=== PATIENT | female | born 1990 | race American Indian/Alaskan Native ===

== ENCOUNTER 2018-05-20 13:33 | Emergency (ER) | payer BC ==
--- NOTE | 2018-05-20 13:56 | Emergency Department Report ---
Chief Complaint: Extremity Problem,Nontraumatic Stated Complaint: CHEST PAIN/LFT LEG TINGLE Time Seen by Provider: 05/20/18 13:56 - HPI History of Present Illness: cp and tightness in chest started as just l side n/t for months no pcp seen vss nad mse completed - Exam Vital Signs: Vital Signs 05/20/18 13:55 Temperature 98 F Pulse Rate 83 Respiratory 20 Rate Blood Pressure 145/82 O2 Sat by Pulse 100 Oximetry MSE screening note: Focused history and physical exam performed. Due to findings the following was ordered: ED Disposition for MSE Condition: Stable
[2018-05-20 14:37] LABS: Hemoglobin 11.4 gm/dl (10.1-14.3); Mean Corpuscular HGB Conc 33 % (30-34); Mean Corpuscular Volume 88 fl (79-97); Platelet Count 323 K/mm3 (140-440); Red Blood Count 3.84 M/mm3 (3.65-5.03); Red Cell Distribution Width 14.4 % (13.2-15.2)
[2018-05-20 14:45] LABS: BUN/Creatinine Ratio 17; Blood Urea Nitrogen 12 mg/dL (7-17); Calcium 9.1 mg/dL (8.4-10.2); Hemolysis Index 10
--- NOTE | 2018-05-20 17:43 | Emergency Department Report ---
ED Lower Extremity HPI - General Chief Complaint: Extremity Problem,Nontraumatic Stated Complaint: CHEST PAIN/LFT LEG TINGLE Time Seen by Provider: 05/20/18 13:56 Source: patient Mode of arrival: Ambulatory Limitations: No Limitations - History of Present Illness Initial Comments: This is an 27-year-old female tingling in left pinky toe and chest discomfort 2- 3 weeks. Past medical history of asthma. Patient states she seen by primary care provider it equals landing and told to follow-up this week. She experienced increased numbness and tingling to left lower extremity and decided to come here for further evaluation. A shunt states asthma control for several years. Her last inhaler use 2 years ago. She denies cough, shortness of breath, palpitations, chest pain, nausea or vomiting, or weakness. MD Complaint: leg injury (left) Onset/Timin -: week(s) Injury: Leg: Left Type of Injury: unknown Place: home Severity: mild Severity scale (0 -10): 0 Improves With: NSAID Worsens With: nothing Associated Symptoms: numbness, tingling, ambulatory Treatments Prior to Arrival: NSAIDS - Related Data Allergies Allergy/AdvReac Type Severity Reaction Status Date / Time No Known Allergies Allergy Unverified 05/20/18 13:37 ED Review of Systems ROS: Stated complaint: CHEST PAIN/LFT LEG TINGLE Other details as noted in HPI Constitutional: denies: chills, fever Respiratory: denies: cough, shortness of breath, wheezing Cardiovascular: denies: chest pain (chest discomfort), palpitations Gastrointestinal: denies: abdominal pain, nausea, diarrhea Musculoskeletal: arthralgia (left lower extremity). denies: back pain, joint swelling Skin: denies: rash, lesions Neurological: denies: headache, weakness, paresthesias Psychiatric: denies: anxiety, depression ED Past Medical Hx - Past Medical History Previous Medical History?: Yes Hx Asthma: Yes - Surgical History Past Surgical History?: No - Social History Smoking Status: Never Smoker Substance Use Type: None ED Physical Exam - General Limitations: No Limitations General appearance: alert, in no apparent distress, obese (morbidly obese) - ENT ENT exam: Present: mucous membranes moist - Respiratory Respiratory exam: Present: normal lung sounds bilaterally. Absent: respiratory distress, wheezes, rales, rhonchi, stridor, chest wall tenderness, accessory muscle use - Cardiovascular Cardiovascular Exam: Present: regular rate, normal rhythm. Absent: systolic murmur, diastolic murmur, rubs, gallop - GI/Abdominal GI/Abdominal exam: Present: soft, normal bowel sounds. Absent: distended, tenderness, guarding, rebound, rigid, organomegaly, mass - Expanded Lower Extremity Exam Left Hip exam: Present: normal inspection, full ROM Upper Leg exam: Present: normal inspection, full ROM Knee exam: Present: normal inspection, full ROM Lower Leg exam: Present: normal inspection, full ROM Ankle exam: Present: normal inspection, full ROM Foot/Toe exam: Present: normal inspection, full ROM Neuro vascular tendon exam: Present: no vascular compromise Gait: Positive: observed and normal - Neurological Exam Neurological exam: Present: alert, oriented X3, normal gait - Psychiatric Psychiatric exam: Present: normal affect, normal mood - Skin Skin exam: Present: warm, dry, intact, normal color. Absent: rash ED Course Vital Signs 05/20/18 13:55 Temperature 98 F Pulse Rate 83 Respiratory 20 Rate Blood Pressure 145/82 O2 Sat by Pulse 100 Oximetry ED Lower Extremity MDM - Lab Data Result diagrams: 05/20/18 14:00 05/20/18 14:00 Lab Results 05/20/18 05/20/18 05/20/18 Range/Units 14:00 14:00 14:00 WBC 8.1 (4.5-11.0) K/mm3 RBC 3.84 (3.65-5.03) M/mm3 Hgb 11.4 (10.1-14.3) gm/dl Hct 34.0 (30.3-42.9) % MCV 88 (79-97) fl MCH 30 (28-32) pg MCHC 33 (30-34) % RDW 14.4 (13.2-15.2) % Plt Count 323 (140-440) K/mm3 D-Dimer < 135.00 (0-234) ng/mlDDU Sodium 137 (137-145) mmol/L Potassium 4.0 (3.6-5.0) mmol/L Chloride 100.6 (98-107) mmol/L Carbon Dioxide 25 (22-30) mmol/L Anion Gap 15 mmol/L BUN 12 (7-17) mg/dL Creatinine 0.7 (0.7-1.2) mg/dL Estimated GFR > 60 ml/min BUN/Creatinine Ratio 17 % Glucose 89 (65-100) mg/dL Calcium 9.1 (8.4-10.2) mg/dL - Medical Decision Making 27 y.o. female that presents with chest chest discomfort and tingling to left lower extremity for 2-3 weeks. Past medical history of controlled asthma. Denies shortness of breath, chest pain, palpitations, or drug use. Patient examined by me and in no acute distress. Vitals stable. Obtained labs. All labs are unremarkable. On focal exam there was no reproducible pain. PCP is with [facility] [place]. Patient was sleeping marrow couple weeks back and told to follow-up but unable. Patient is directed to follow-up with [facility] for further evaluation and workup. Discharged home stable. Return to work tomorrow. Critical care attestation.: If time is entered above; I have spent that time in minutes in the direct care of this critically ill patient, excluding procedure time. ED Disposition Clinical Impression: Numbness and tingling of foot, Chest wall discomfort Disposition: DC-01 TO HOME OR SELFCARE Is pt being admited?: No Does the pt Need Aspirin: No Condition: Stable Instructions: Paresthesia (ED) Additional Instructions: Follow-up with her primary care provider for further evaluation. Referrals: [facility] [Provider Group] - 3-5 Days [facility] [Provider Group] - 3-5 Days Forms: Work/School Release Form(ED) Time of Disposition: 17:45
[2018-05-20 18:08] VITALS: BP 142/80
== END 2018-05-20 18:06 | disposition home or self-care (01) ==
LOC: ED 13:33
DX: R07.89 Other chest pain (principal); R20.0 Anesthesia of skin; R20.2 Paresthesia of skin; J45.909 Unspecified asthma, uncomplicated
CPT/HCPCS: 36415; 80048; 85027; 85379; 99283

== ENCOUNTER 2018-08-19 03:55 | Emergency (ER) | payer BC ==
[2018-08-19 04:03] VITALS: BP 137/83
[2018-08-19 04:25] LABS: Basophils % (Auto) 0.4 % (0.0-1.8); Eosinophils # (Auto) 0.1 K/mm3 (0.0-0.4); Eosinophils % (Auto) 1.1 % (0.0-4.3); Hemoglobin 11.8 gm/dl (10.1-14.3); Lymphocytes # (Auto) 3.5 K/mm3 (1.2-5.4); Lymphocytes % (Auto) 30.1 % (13.4-35.0); Mean Corpuscular HGB Conc 34 % (30-34); Mean Corpuscular Volume 89 fl (79-97); Monocytes # (Auto) 0.8 K/mm3 (0.0-0.8); Monocytes % (Auto) 6.7 % (0.0-7.3); Platelet Count 320 K/mm3 (140-440); Red Blood Count 3.92 M/mm3 (3.65-5.03); Red Cell Distribution Width 15.5 % (13.2-15.2)
[2018-08-19 04:25] LABS: Bacteria,Urine 1+ /HPF (Negative); Bilirubin,Urine NEG (Negative); Blood,Urine MOD (Negative); Color,Urine Yellow (Yellow); Hyaline Casts,Urine 2 /LPF; Mucus,Urine 2+ /HPF; Protein,Urine <15 mg/dL mg/dL (Negative); Urobilinogen,Urine < 2.0 mg/dL (<2.0)
[2018-08-19 04:40] LABS: Alanine Aminotransferase 9 units/L (7-56); Albumin 4.1 g/dL (3.9-5); BUN/Creatinine Ratio 19; Blood Urea Nitrogen 17 mg/dL (7-17); Calcium 9.2 mg/dL (8.4-10.2); Hemolysis Index 3
[2018-08-19] MEDS ORDERED: ROCEPHIN/NS 1 GM/50 ML 1 GM/50 ML BAG IV ONE (07:41)
[2018-08-19] MEDS ORDERED: NACL 0.9% 1000 ML 1,000 ML IV ONE (07:41)
[2018-08-19] MEDS ORDERED: ZOFRAN ODT PO ONE (07:41)
--- NOTE | 2018-08-19 07:41 | Emergency Department Report ---
ED Dysuria HPI - HPI Chief Complaint: Abdominal Pain Stated Complaint: EMESIS/DIARRHEA/HEADACHE Time Seen by Provider: 08/19/18 07:11 Duration: 3 Days Severity: Mild Symptoms: Dysuria: Yes, Frequency: No, Suprapubic Pain: No, Flank Pain: No, Fever: No, Hematuria: No, Abdominal Pain: No, Previous UTI's: Yes Other History: Patient is a 27-year-old female presents to the ER today complaining of dysuria. She is having some suprapubic discomfort. She denies any fever or chills or back pain. Patient has no nausea and vomiting. Her pain is not consistent with kidney stone. Patient is nontoxic on exam. She has not taken anything at home to make her pain better. Nothing seems to make it worse. ED Review of Systems ROS: Stated complaint: EMESIS/DIARRHEA/HEADACHE Other details as noted in HPI Comment: All other systems reviewed and negative ED Past Medical Hx - Past Medical History Previous Medical History?: Yes Hx Asthma: Yes - Surgical History Past Surgical History?: No - Family History Family history: no significant - Social History Smoking Status: Never Smoker Substance Use Type: Alcohol - Medications Home Medications: Home Medications Medication Instructions Recorded Confirmed Last Taken Type Clindamycin [Clindamycin CAP] 300 mg PO Q8H #30 cap 08/19/18 Unknown Rx Fluconazole [Diflucan TAB] 150 mg PO ONCE #1 tablet 08/19/18 Unknown Rx Ondansetron [Zofran Odt] 4 mg PO Q8HR PRN #10 tab.rapdis 08/19/18 Unknown Rx Dysuria Exam - Exam General: Vital signs noted. No distress. Alert and acting appropriately. Labs: Lab Results 08/19/18 08/19/18 08/19/18 Range/Units 04:08 04:11 04:11 WBC 11.7 H (4.5-11.0) K/mm3 RBC 3.92 (3.65-5.03) M/mm3 Hgb 11.8 (10.1-14.3) gm/dl Hct 35.0 (30.3-42.9) % MCV 89 (79-97) fl MCH 30 (28-32) pg MCHC 34 (30-34) % RDW 15.5 H (13.2-15.2) % Plt Count 320 (140-440) K/mm3 Lymph % (Auto) 30.1 (13.4-35.0) % [place]ill % (Auto) 6.7 (0.0-7.3) % Eos % (Auto) 1.1 (0.0-4.3) % Baso % (Auto) 0.4 (0.0-1.8) % Lymph # 3.5 (1.2-5.4) K/mm3 Estill # 0.8 (0.0-0.8) K/mm3 Eos # 0.1 (0.0-0.4) K/mm3 Baso # 0.0 (0.0-0.1) K/mm3 Seg Neutrophils % 61.7 (40.0-70.0) % Seg Neutrophils # 7.2 (1.8-7.7) K/mm3 Sodium 139 (137-145) mmol/L Potassium 3.9 (3.6-5.0) mmol/L Chloride 101.9 (98-107) mmol/L Carbon Dioxide 25 (22-30) mmol/L Anion Gap 16 mmol/L BUN 17 (7-17) mg/dL Creatinine 0.9 (0.7-1.2) mg/dL Estimated GFR > 60 ml/min BUN/Creatinine Ratio 19 % Glucose 101 H (65-100) mg/dL Calcium 9.2 (8.4-10.2) mg/dL Total Bilirubin 0.40 (0.1-1.2) mg/dL AST 16 (5-40) units/L ALT 9 (7-56) units/L Alkaline Phosphatase 105 (35-129) units/L Total Protein 8.3 H (6.3-8.2) g/dL Albumin 4.1 (3.9-5) g/dL Albumin/Globulin Ratio 1.0 % Lipase 24 (13-60) units/L HCG, Qual (Negative) Urine Color Yellow (Yellow) Urine Turbidity Cloudy (Clear) Urine pH 5.0 (5.0-7.0) Ur Specific [place] 1.033 H (1.003-1.030) Urine Protein <15 mg/dl (Negative) mg/dL Urine Glucose (UA) Neg (Negative) mg/dL Urine Ketones Neg (Negative) mg/dL Urine Blood Mod (Negative) Urine Nitrite Neg (Negative) Urine Bilirubin Neg (Negative) Urine Urobilinogen < 2.0 (<2.0) mg/dL Ur Leukocyte Esterase Mod (Negative) Urine WBC (Auto) 45.0 H (0.0-6.0) /HPF Urine RBC (Auto) 23.0 (0.0-6.0) /HPF U Epithel Cells (Auto) 22.0 H (0-13.0) /HPF Urine Bacteria (Auto) 1+ (Negative) /HPF Hyaline Casts 2 /LPF Urine Mucus 2+ /HPF Urine Yeast (Budding) 1+ /HPF 08/19/18 Range/Units 04:11 WBC (4.5-11.0) K/mm3 RBC (3.65-5.03) M/mm3 Hgb (10.1-14.3) gm/dl Hct (30.3-42.9) % MCV (79-97) fl MCH (28-32) pg MCHC (30-34) % RDW (13.2-15.2) % Plt Count (140-440) K/mm3 Lymph % (Auto) (13.4-35.0) % [place]ill % (Auto) (0.0-7.3) % Eos % (Auto) (0.0-4.3) % Baso % (Auto) (0.0-1.8) % Lymph # (1.2-5.4) K/mm3 Estill # (0.0-0.8) K/mm3 Eos # (0.0-0.4) K/mm3 Baso # (0.0-0.1) K/mm3 Seg Neutrophils % (40.0-70.0) % Seg Neutrophils # (1.8-7.7) K/mm3 Sodium (137-145) mmol/L Potassium (3.6-5.0) mmol/L Chloride (98-107) mmol/L Carbon Dioxide (22-30) mmol/L Anion Gap mmol/L BUN (7-17) mg/dL Creatinine (0.7-1.2) mg/dL Estimated GFR ml/min BUN/Creatinine Ratio % Glucose (65-100) mg/dL Calcium (8.4-10.2) mg/dL Total Bilirubin (0.1-1.2) mg/dL AST (5-40) units/L ALT (7-56) units/L Alkaline Phosphatase (35-129) units/L Total Protein (6.3-8.2) g/dL Albumin (3.9-5) g/dL Albumin/Globulin Ratio % Lipase (13-60) units/L HCG, Qual Negative (Negative) Urine Color (Yellow) Urine Turbidity (Clear) Urine pH (5.0-7.0) Ur Specific [place] (1.003-1.030) Urine Protein (Negative) mg/dL Urine Glucose (UA) (Negative) mg/dL Urine Ketones (Negative) mg/dL Urine Blood (Negative) Urine Nitrite (Negative) Urine Bilirubin (Negative) Urine Urobilinogen (<2.0) mg/dL Ur Leukocyte Esterase (Negative) Urine WBC (Auto) (0.0-6.0) /HPF Urine RBC (Auto) (0.0-6.0) /HPF U Epithel Cells (Auto) (0-13.0) /HPF Urine Bacteria (Auto) (Negative) /HPF Hyaline Casts /LPF Urine Mucus /HPF Urine Yeast (Budding) /HPF WDWN patient in NAD VS per RN flow sheet Alert and oriented to person, place and time. S1-S2. No S3 or S4. No systolic or diastolic murmur. No JVD. No pitting edema. Lungs clear to auscultation bilaterally anteriorly and posteriorly. Abdomen soft nontender bowel sounds X4 Moves all extremities well. Mood and affect appropriate. ED Course Vital Signs 08/19/18 03:59 Temperature 98.0 F Pulse Rate 75 Respiratory 18 Rate Blood Pressure 137/83 O2 Sat by Pulse 100 Oximetry ED Medical Decision Making - Lab Data Result diagrams: 08/19/18 04:11 08/19/18 04:11 - Medical Decision Making Lab Results 08/19/18 08/19/18 08/19/18 Range/Units 04:08 04:11 04:11 WBC 11.7 H (4.5-11.0) K/mm3 RBC 3.92 (3.65-5.03) M/mm3 Hgb 11.8 (10.1-14.3) gm/dl Hct 35.0 (30.3-42.9) % MCV 89 (79-97) fl MCH 30 (28-32) pg MCHC 34 (30-34) % RDW 15.5 H (13.2-15.2) % Plt Count 320 (140-440) K/mm3 Lymph % (Auto) 30.1 (13.4-35.0) % Estill % (Auto) 6.7 (0.0-7.3) % Eos % (Auto) 1.1 (0.0-4.3) % Baso % (Auto) 0.4 (0.0-1.8) % Lymph # 3.5 (1.2-5.4) K/mm3 Estill # 0.8 (0.0-0.8) K/mm3 Eos # 0.1 (0.0-0.4) K/mm3 Baso # 0.0 (0.0-0.1) K/mm3 Seg Neutrophils % 61.7 (40.0-70.0) % Seg Neutrophils # 7.2 (1.8-7.7) K/mm3 Sodium 139 (137-145) mmol/L Potassium 3.9 (3.6-5.0) mmol/L Chloride 101.9 (98-107) mmol/L Carbon Dioxide 25 (22-30) mmol/L Anion Gap 16 mmol/L BUN 17 (7-17) mg/dL Creatinine 0.9 (0.7-1.2) mg/dL Estimated GFR > 60 ml/min BUN/Creatinine Ratio 19 % Glucose 101 H (65-100) mg/dL Calcium 9.2 (8.4-10.2) mg/dL Total Bilirubin 0.40 (0.1-1.2) mg/dL AST 16 (5-40) units/L ALT 9 (7-56) units/L Alkaline Phosphatase 105 (35-129) units/L Total Protein 8.3 H (6.3-8.2) g/dL Albumin 4.1 (3.9-5) g/dL Albumin/Globulin Ratio 1.0 % Lipase 24 (13-60) units/L HCG, Qual (Negative) Urine Color Yellow (Yellow) Urine Turbidity Cloudy (Clear) Urine pH 5.0 (5.0-7.0) Ur Specific [place] 1.033 H (1.003-1.030) Urine Protein <15 mg/dl (Negative) mg/dL Urine Glucose (UA) Neg (Negative) mg/dL Urine Ketones Neg (Negative) mg/dL Urine Blood Mod (Negative) Urine Nitrite Neg (Negative) Urine Bilirubin Neg (Negative) Urine Urobilinogen < 2.0 (<2.0) mg/dL Ur Leukocyte Esterase Mod (Negative) Urine WBC (Auto) 45.0 H (0.0-6.0) /HPF Urine RBC (Auto) 23.0 (0.0-6.0) /HPF U Epithel Cells (Auto) 22.0 H (0-13.0) /HPF Urine Bacteria (Auto) 1+ (Negative) /HPF Hyaline Casts 2 /LPF Urine Mucus 2+ /HPF Urine Yeast (Budding) 1+ /HPF 08/19/18 Range/Units 04:11 WBC (4.5-11.0) K/mm3 RBC (3.65-5.03) M/mm3 Hgb (10.1-14.3) gm/dl Hct (30.3-42.9) % MCV (79-97) fl MCH (28-32) pg MCHC (30-34) % RDW (13.2-15.2) % Plt Count (140-440) K/mm3 Lymph % (Auto) (13.4-35.0) % [place] % (Auto) (0.0-7.3) % Eos % (Auto) (0.0-4.3) % Baso % (Auto) (0.0-1.8) % Lymph # (1.2-5.4) K/mm3 Estill # (0.0-0.8) K/mm3 Eos # (0.0-0.4) K/mm3 Baso # (0.0-0.1) K/mm3 Seg Neutrophils % (40.0-70.0) % Seg Neutrophils # (1.8-7.7) K/mm3 Sodium (137-145) mmol/L Potassium (3.6-5.0) mmol/L Chloride (98-107) mmol/L Carbon Dioxide (22-30) mmol/L Anion Gap mmol/L BUN (7-17) mg/dL Creatinine (0.7-1.2) mg/dL Estimated GFR ml/min BUN/Creatinine Ratio % Glucose (65-100) mg/dL Calcium (8.4-10.2) mg/dL Total Bilirubin (0.1-1.2) mg/dL AST (5-40) units/L ALT (7-56) units/L Alkaline Phosphatase (35-129) units/L Total Protein (6.3-8.2) g/dL Albumin (3.9-5) g/dL Albumin/Globulin Ratio % Lipase (13-60) units/L HCG, Qual Negative (Negative) Urine Color (Yellow) Urine Turbidity (Clear) Urine pH (5.0-7.0) Ur Specific [place] (1.003-1.030) Urine Protein (Negative) mg/dL Urine Glucose (UA) (Negative) mg/dL Urine Ketones (Negative) mg/dL Urine Blood (Negative) Urine Nitrite (Negative) Urine Bilirubin (Negative) Urine Urobilinogen (<2.0) mg/dL Ur Leukocyte Esterase (Negative) Urine WBC (Auto) (0.0-6.0) /HPF Urine RBC (Auto) (0.0-6.0) /HPF U Epithel Cells (Auto) (0-13.0) /HPF Urine Bacteria (Auto) (Negative) /HPF Hyaline Casts /LPF Urine Mucus /HPF Urine Yeast (Budding) /HPF Vital Signs 08/19/18 08/19/18 03:59 08:04 Temperature 98.0 F Pulse Rate 75 Respiratory 18 18 Rate Blood Pressure 137/83 O2 Sat by Pulse 100 99 Oximetry AFEBRILE NO CVA TENDERNESS TAKING PO NONTOXIC ON EXAM ABD SOFT NON TENDER MEDICATED IN ER AND DC HOME WITH TREATMENT FOR UTI AND PCP FOLLOW UP Critical care attestation.: If time is entered above; I have spent that time in minutes in the direct care of this critically ill patient, excluding procedure time. ED Disposition Clinical Impression: UTI (urinary tract infection), Yeast infection Disposition: DC-01 TO HOME OR SELFCARE Is pt being admited?: No Does the pt Need Aspirin: No Condition: Stable Instructions: Urinary Tract Infection in Women (ED) Additional Instructions: DIET TOLERATED MEDS ORDERED TODAY IN ER FOLLOW INSTRUCTIONS ON THE BOTTLE FOLLOW UP PCP WITHIN 48 HOURS TO ENSURE YOU ARE GETTING BETTER ACTIVITY TOLERATED MOTRIN OR TYLENOL FOR PAIN OR FEVER RETURN TO THE ER FOR WORSENING SYMPTOMS NOT RELIEVED BY YOUR MEDICATIONS. Prescriptions: Clindamycin [Clindamycin CAP] 300 mg PO Q8H #30 cap Fluconazole [Diflucan TAB] 150 mg PO ONCE #1 tablet Ondansetron [Zofran Odt] 4 mg PO Q8HR PRN #10 tab.rapdis PRN Reason: Vomiting Referrals: [facility] [Outside] - 3-5 Days Forms: Work/School Release Form(ED)
== END 2018-08-19 09:16 | disposition home or self-care (01) ==
LOC: ED 03:55
DX: N39.0 Urinary tract infection, site not specified (principal); B37.9 Candidiasis, unspecified; J45.909 Unspecified asthma, uncomplicated; Z79.899 Other long term (current) drug therapy
CPT/HCPCS: 36415; 80053; 81001; 83690; 84703; 85025; 87086; 96365; 99283; J0696; J7030; Q0162